=== PATIENT | male | born 1985 | race Caucasian/White ===

== ENCOUNTER 2018-09-20 10:26 | Inpatient (IN) ==
[2018-09-20] MEDS ORDERED: NS 1,000 ML IV ONE (10:53)
[2018-09-20] MEDS ORDERED: MORPHINE IV ONE ×2 (10:53→13:20)
[2018-09-20] MEDS ORDERED: ZOFRAN IV ONE (10:53)
[2018-09-20 11:23] LABS: BASO# 0.02 X1000 (0.0-0.2); BASO% 0.3 % (0.0-0.8); EOS# 0.17 X1000 (0.0-0.7); EOS% 2.4 % (0.0-10.0); HEMATOCRIT 41.1 % (42.0-52.0); HEMOGLOBIN 14.5 g/dL (14.0-18.0); IMM GRAN# 0.02 X1000 (0.0-0.04); IMM GRAN% 0.3 % (0.0-0.5); LYMPH# 0.88 X1000 (1.2-3.4); LYMPH% 12.6 % (20.5-51.1); MCH 30.4 PG (27-31); MCHC 35.3 g/dL (33-37); MCV 86.2 FL (81-99); MONO# 0.54 X1000 (0.11-0.59); MONO% 7.7 % (1.7-9.3); MPV 10.5 FL (7.4-10.4); NEUT# 5.36 X1000 (1.4-6.5); NEUT% 76.7 % (42.2-75.2); PLT 220 X1000 (130-400); RBC 4.77 XMIL (4.7-6.1); RDW 13.1 % (11.5-14.5); WBC 6.99 X1000 (4.8-10.8)
[2018-09-20 13:53] LABS: AGAP 11; ALBUMIN 4.5 g/dL (3.5-5.0); ALKALINE PHOSPHATASE 58 U/L (32-122); BUN 8 mg/dL (8-22); CALCIUM 9.3 mg/dL (8.8-10.2); CHLORIDE 103 mmol/L (98-107); COSMO 278; CREATININE 0.7 mg/dL (0.7-1.2); ESTIMATED GFR > 60; GLUCOSE 97 mg/dL (70-104); GOT 12 U/L (10-34); GPT 14 U/L (10-44); POTASSIUM 4.2 mmol/L (3.5-5.1); SODIUM 140 mmol/L (136-145); TCO2 26 mmol/L (25-35); TOTAL PROTEIN 6.8 g/dL (6.3-8.3)
--- NOTE | 2018-09-20 14:35 | Diag Imaging Result Doc PS360 ---
EXAM: CT ABD/PELVIS W/IV CONT ONLY HISTORY: rlq tender TECHNIQUE: CT abdomen and pelvis with intravenous contrast COMPARISON: 12/28/2012 FINDINGS: The gallbladder has been removed. No focal hepatic abnormality. Normal spleen, pancreas, adrenal glands, and kidneys. There are several tiny renal cysts and there appear to be tiny nonobstructing renal stones. No hydronephrosis. Normal aorta. The left renal vein goes behind the aorta. This is a normal variant. The appendix is distended to 8 mm. Minimal adjacent inflammation. No free air. No abscess. Mild fluid distended loops of small bowel. There are small mesenteric nodes. The urinary bladder is moderately distended and appears normal. Normal prostate. IMPRESSION: Thickening to the appendix which may indicate early appendicitis. This report was discussed with Francisca the nurse practitioner in the [place] emergency room on 09/20/2018 at 2:30 PM and was readback. This exam was performed using automated exposure control, adjustment of mA or kV according to patient size, and/or use of iterative reconstruction technique. Electronically signed by Nixon Neville 09/20/2018 2:33 PM
[2018-09-20] MEDS ORDERED: LR 1,000 ML ONE ×2 (17:19→19:00)
[2018-09-20] MEDS ORDERED: SENSORCAINE 0.5%-EPI 1:200,000 ONE (17:19)
[2018-09-20] MEDS ORDERED: SENSORCAINE-MPF 0.5%/EPI 1:200,000 ONE (17:20)
[2018-09-20] MEDS ORDERED: LEVAQUIN 500 MG/D5W 500 MG/100 ML IVPB ONE (17:32)
[2018-09-20] MEDS ORDERED: DIPRIVAN 1% ONE (17:37)
[2018-09-20] MEDS ORDERED: FENTANYL ONE (17:37)
[2018-09-20] MEDS ORDERED: QUELICIN (DOSE) ONE (17:38)
[2018-09-20] MEDS ORDERED: XYLOCAINE-MPF 2% ONE (17:38)
--- NOTE | 2018-09-20 17:59 | HISTORY AND PHYSICAL ---
Maik Oswald is a 33-year-old white male who looks otherwise healthy presented to [facility] Emergency Department with an almost 24-hour history of abdominal pain which is localized to his right lower quadrant. A CT scan of his abdomen and pelvis was performed as part of his evaluation in the emergency department. It suggested acute appendicitis as did his exam and we asked that he transfer to [facility] for surgical treatment. PAST MEDICAL HISTORY: He has been told that he had Crohn's in the past but it has not been active. He has had no resections. He has had a recent colonoscopy in August [address] Cruz and he was told that his colon was clean. He recently had a CT scan of his abdomen and pelvis to look for small-bowel inflammation and it was reported that there was none. He is being treated for irritable bowel and being tested for celiac disease. MEDICATIONS: He takes antihypertensive and medicine for irritable bowel. ALLERGIES: Cephalosporin. 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 He is and his was at the bedside. He does not smoke. FAMILY HISTORY: Noncontributory. PHYSICAL EXAMINATION: Maik Oswald is a 33-year-old white male who appeared to be healthy no acute distress awake and cooperative. He had no jaundice, no oral lesions, satisfactory dentition. He had no cervical or supraclavicular lymphadenopathy. His heart has a regular rate. Lungs were clear to auscultation and percussion bilaterally. His abdomen was soft but it was tender in the right lower quadrant. He had no previous scars on his abdomen. No costovertebral tenderness. Rectal exam was not performed. He does have palpable peripheral pulses. No peripheral edema. Neurologically he is alert and oriented x3 and appropriate. IMPRESSION: Acute appendicitis in a patient who has been told he has had Crohn's in the past. PLAN: Laparoscopic appendectomy. I did discuss with the family that this could be Crohn's and require more of a resection or a conversion of a laparoscopic procedure to an open procedure. We did discuss reasons to proceed with appendectomy and its risks and they want to proceed. cc: Princess De MD
[2018-09-20] MEDS ORDERED: ROBINUL ONE (18:24)
[2018-09-20] MEDS ORDERED: ZOFRAN ONE (18:24)
[2018-09-20] MEDS ORDERED: NEOSTIGMINE ONE (18:24)
[2018-09-20] MEDS ORDERED: ZEMURON ONE (18:24)
[2018-09-20] MEDS ORDERED: DEMEROL ONE (18:43)
[2018-09-20] MEDS ORDERED: PHENERGAN IV PRN (18:44)
[2018-09-20] MEDS ORDERED: MORPHINE IV PRN (18:45)
[2018-09-20] MEDS ORDERED: LR 1,000 ML IV SCH (19:00)
--- NOTE | 2018-09-20 19:08 | OPERATIVE NOTE ---
PROCEDURE DATE: 09/20/2018 PREOPERATIVE DIAGNOSIS: Acute appendicitis. POSTOPERATIVE DIAGNOSIS: Acute appendicitis. PRINCIPAL PROCEDURE: Laparoscopic appendectomy. SURGEON: Princess De MD ANESTHESIA: General, in addition to local anesthetic. ESTIMATED BLOOD LOSS: 25 mL. DRAINS: None. INDICATIONS: Mr. Fabricio Oswald is 33-year-old white male who presented to [facility] Emergency Department with a 24 hour history of abdominal pain, which is localized to his right lower quadrant. A CT scan of his abdomen and pelvis suggested acute appendicitis, as did his exam. He was transferred from [place] to [facility] for appendectomy. FINDINGS: He had acute appendicitis without evidence of rupture. There is a vague history of possible Crohn disease when he was younger, but there was no evidence of active Crohn disease intraabdominally, at least exploring with the laparoscope. His liver appeared to be healthy. He has already had a cholecystectomy. No other intraabdominal pathology was noted, and we felt we did the operation safely. DESCRIPTION OF PROCEDURE: The patient was brought to the operating room, placed supine, received general anesthesia, was intubated. We did place a Tripathi catheter tube. His abdomen was prepped and draped within the sterile field. He received IV Levaquin because he is allergic to cephalosporins. We made a curvilinear incision in the previous scar below the umbilicus with a 15 blade scalpel. A Veress needle was introduced through this incision into the abdomen. Pneumoperitoneum was established, and then I removed the Veress needle and used step trocars. I placed an 11 mm step trocar through this incision into the abdomen. The camera was placed through this port, and the abdomen was explored for injury and there was none. Three other trocars were placed along the right costal margin under direct vision of the camera. I placed a 12 mm trocar in the midline suprapubic area, and a 5 mm trocar in the right lower quadrant of the abdomen under direct vision of the camera. The camera was at the umbilicus. I used a grasper and a dissector in our lower trocar sites. The patient was placed in Trendelenburg, and then he was turned towards me or to his left, and I was able to easily identify the acute appendicitis and mobilize the appendix. I used spatula cautery to help mobilize it to its base. I used a gold load 30 mm in length EndoGIA to come across the appendiceal mesentery. I reloaded the stapler to come across the base of the appendix. I then used an Endobag to remove the appendix through my 12 mm port site. I placed this trocar back through the incision, and the area of operation was thoroughly inspected, irrigated, and the irrigation was removed with suction. There was no evidence of ongoing bleeding. We were happy with the stapled stump of the appendix. No drains were left. All trocars removed under direct vision of the camera. The pneumoperitoneum was allowed to dissipate. I used [id number] 2-0 Vicryl stitches to reapproximate the fascia in my midline trocar sites, and all skin was closed with 4-0 Monocryl subcuticular stitches. Steri-Strips were applied. The plans are to remove his Tripathi catheter tube. He will go to the recovery room and be admitted overnight. cc: MD Twan Meeks MD
[2018-09-20] MEDS: NORCO-10 PO PRN (19:50)
[2018-09-21] MEDS: NORCO-10 PO PRN ×2 (00:01→05:41)
[2018-09-21 02:57] LABS: URINE SOURCE CLEAN CATCH
[2018-09-21 03:00] LABS: BILIRUBIN URINE NEGATIVE (NEGATIVE); BLOOD URINE NEGATIVE (NEGATIVE); COLOR STRAW; GLUCOSE URINE NEGATIVE (NEGATIVE); KETONE URINE NEGATIVE (NEGATIVE); LEUKOCYTES URINE NEGATIVE (NEGATIVE); NITRITE URINE NEGATIVE (NEGATIVE); PROTEIN URINE NEGATIVE (NEGATIVE); SP GRAVITY URINE 1.006; TURBIDITY URINE CLEAR (CLEAR); UROBILINOGEN URINE NORMAL (NORMAL)
[2018-09-21 03:01] LABS: UR EPITHELIAL CELLS <10 /HPF (<10); URINE BACTERIA NEGATIVE /HPF; URINE RBC <10 /HPF (<10); URINE WBC <10 /HPF (<10)
[2018-09-21 04:19] VITALS: BP 125/73
--- NOTE | 2018-09-21 07:50 | DISCHARGE SUMMARY ---
ADMISSION DATE: 09/20/2018 DISCHARGE DATE: 09/21/2018 ADMITTING DIAGNOSIS: Acute appendicitis. DISCHARGE DIAGNOSIS: Acute appendicitis. PRINCIPAL PROCEDURE: Laparoscopic appendectomy. DISCHARGE MEDICATION: [place] for pain. DISCHARGE DISABILITY: Full. DISCHARGE DISPOSITION: He will return to our outpatient offices in 7 to 10 days for followup. DISCHARGE DIET: Regular. HOSPITAL COURSE: Mr. Maik Oswald is a 33-year-old white male patient of Dr. Kayla Tuttle of [place] and also Dr. Paramjit Cruz here in [place]. He presented to [facility] Emergency Department with right lower quadrant pain. A CT scan suggested acute appendicitis as did his exam. He was transferred from [place] to [facility] for laparoscopic appendectomy. At the time of surgery, the appendix was acutely inflamed but there was no evidence of rupture. No drains were left and after surgery, he went to the recovery room and then to the [address] [place] [address] [place]. On postop day 1, he was ambulating in the halls. He was voiding without difficulty. He was tolerating liquids. His trocar sites were intact. It was felt safe to discharge him to his home under the care of his with followup in our outpatient offices in 7 to 10 days. cc: Princess De MD
== END 2018-09-21 07:51 | disposition home or self-care (01) | DRG 343 ==
LOC: P.ED 10:26 → 4N 16:28
PROVIDERS: ADMIT Surgery; ATTEND Surgery
CPT/HCPCS: 74177; 80053; 81001; 83690; 85025; 88304; 96374; 96375; 96376; 99285; A9270; J0330; J1956; J2175; J2270; J2405; J3010; J7030; J7120; Q9967